=== PATIENT | female | born 1945 | race Caucasian/White ===

== ENCOUNTER 2018-04-29 03:09 | Emergency (ER) | payer MEDICARE, BC, MEDICAID ==
[2018-04-29] MEDS: SOD CHLORIDE 0.9% 1,000 ML IV (03:56)
[2018-04-29] MEDS: morphine 4 MG/ML VIAL IV (03:56)
[2018-04-29 04:06] LABS: ADD MAN DIFF? NO
[2018-04-29 04:09] LABS: ABNORMAL IP MESSAGE 1; BASOPHILS % 0.2 % (0.0-2.0); HEMATOCRIT 37.7 % (37.0-47.0); HEMOGLOBIN 12.9 g/dl (12.0-16.0); LYMPHOCYTES # 1.1 10^3/ul (0.8-2.9); LYMPHOCYTES % 4.8 % (15.0-51.0); MEAN CORPUSCULAR HEMOGLOBIN 33.5 pg (29.0-33.0); MEAN CORPUSCULAR HGB CONC 34.2 g/dl (32.0-37.0); MEAN CORPUSCULAR VOLUME 97.9 fl (82.0-101.0); MEAN PLATELET VOLUME 10.7 fl (7.4-10.4); MONOCYTE # 1.2 10^3/ul (0.3-0.9); MONOCYTES % 4.9 % (0.0-11.0); NEUTROPHILS % 89.6 % (39.0-77.0); PLATELET COUNT 173 10^3/UL (140-415); RED BLOOD COUNT 3.85 10^6/ul (4.20-5.40)
[2018-04-29 04:09] LABS: WHITE BLOOD COUNT 23.4 10^3/ul (4.8-10.8)
[2018-04-29 04:10] LABS: INR 1.05; PROTIME 13.8 Sec (11.9-14.9); PT RATIO 1.1
[2018-04-29 04:12] LABS: POSITIVE DIFF @See below
[2018-04-29 04:14] LABS: ANION GAP 17 (8-16); BLOOD UREA NITROGEN 37 mg/dl (7-20); CALCIUM 8.9 mg/dl (8.4-10.2); CARBON DIOXIDE 22 mmol/L (21-31); CHLORIDE 105 mmol/L (97-110); CREATININE 0.95 mg/dl (0.44-1.00); GLUCOSE 234 mg/dl (70-220); POTASSIUM 3.7 mmol/L (3.5-5.1); SODIUM 140 mmol/L (135-144)
[2018-04-29] MEDS: IOHEXOL 100 ML (05:41)
[2018-04-29] MEDS: SOD CHLORIDE 0.9% 100 ML (05:41)
[2018-04-29] MEDS: HYDROmorphONE 0.5 MG/0.5 ML SYG IV (06:33)
[2018-04-29] MEDS: D5W-0.45 NACL + KCL 20 MEQ 1,000 ML IV (07:16)
[2018-04-29 07:17] LABS: ADD UMIC YES; UR ASCORBIC ACID NEGATIVE (NEGATIVE); UR BACTERIA FEW /HPF (NONE SEEN); UR BILIRUBIN (Dip) NEGATIVE (NEGATIVE); UR BLOOD (Dip) 1+ mg/dL (NEGATIVE); UR CLARITY CLEAR (CLEAR); UR COLOR YELLOW (YELLOW); UR GLUCOSE (Dip) 2+ mg/dL (NEGATIVE); UR KETONES (Dip) TRACE mg/dL (NEGATIVE); UR LEUKOCYTE ESTERASE (Dip) NEGATIVE Leu/ul (NEGATIVE); UR NITRITE (Dip) NEGATIVE (NEGATIVE); UR RBC 2 /HPF (0-5); UR SPECIFIC GRAVITY (Dip) 1.047 (1.003-1.030); UR TOTAL PROTEIN (Dip) NEGATIVE (NEGATIVE); UR UROBILINOGEN (Dip) NEGATIVE (NEGATIVE); UR WBC 1 /HPF (0-5)
[2018-04-29] MEDS: HYDROmorphONE 2 MG/ML SYG IV (09:13)
== END 2018-04-29 09:35 | disposition short-term general hospital (02) ==
LOC: E/R 09:35
DX: S42.291A Other displaced fracture of upper end of right humerus, initial encounter for closed fracture (principal); R23.0 Cyanosis; G56.21 Lesion of ulnar nerve, right upper limb; D72.829 Elevated white blood cell count, unspecified; E86.0 Dehydration; S45.001 Unspecified injury of axillary artery, right side; R73.9 Hyperglycemia, unspecified; E03.9 Hypothyroidism, unspecified; W01.0XXA Fall on same level from slipping, tripping and stumbling without subsequent striking against object, initial encounter; Y92.9 Unspecified place or not applicable; Z96.653 Presence of artificial knee joint, bilateral
CPT/HCPCS: 71045; 73030-RT; 73206; 80048; 81001; 85025; 85610; 86850; 86900; 86901; 93005; 96374; 96375; 96376; 99285-25